=== PATIENT | male | born 1975 | race African-American/Black ===

== ENCOUNTER 2017-03-30 20:37 | Emergency (ER) | payer SELFPAY ==
[2017-03-30 21:53] LABS: BASO # 0.1 x10^3/uL (0.0-0.2); BASO % 1 % (0-3); EOS % 0 % (0-3); HEMATOCRIT 53.4 % (39.0-53.0); HEMOGLOBIN 17.5 g/dL (13.0-17.5); LYMPH # 2.5 x10^3/uL (1.0-4.8); LYMPH % 16 % (24-48); MEAN CORPUSCULAR HEMOGLOBIN 29 pg (25-35); MEAN CORPUSCULAR HGB CONC 33 g/dL (31-37); MEAN CORPUSCULAR VOLUME 90 fL (79-100); MONO % 5 % (0-9); NEUT % 79 % (31-73); PLATELET COUNT 236 x10^3/uL (140-400); RED BLOOD COUNT 5.95 x10^6/uL (4.30-5.70); WHITE BLOOD COUNT 16.1 x10^3/uL (4.0-11.0)
--- NOTE | 2017-03-30 21:58 | PHYS DOC ---
Past Medical History Past Medical History: No Pertinent History Past Surgical History: No Surgical History Additional Information: LESS THAN A PP WEEK Alcohol Use: None Drug Use: Marijuana Adult General Chief Complaint Chief Complaint: NAUSEA/VOMITING/DIARRHA HPI HPI Patient is a 42 year old for -[place] male who presents with epigastric pain. He states it started this morning and has been constant. He burps and passes gas and actually makes it better. He states when he burps he has much acid in his mouth. He states symptoms x-ray started Monday morning after he ate at [employer] for before. He states Monday he started having a lot of abdominal cramps that he eventually started vomiting and having diarrhea dose of all gone away and he's having normal/loose stools now without any vomiting. He states the pain is a 10 out 10 and when he burps he does feel better. He denies any flank pain, right or left upper quadrant pain, or any other pain other than the epigastric area. He taken Maalox and Pepto-Bismol for this. Review of Systems Review of Systems Constitutional: Denies fever or chills [] Eyes: Denies change in visual acuity, redness, or eye pain [] HENT: Denies nasal congestion or sore throat [] Respiratory: Denies cough or shortness of breath [] Cardiovascular: No additional information not addressed in HPI [] GI: Positive for abdominal pain, Denies nausea, vomiting, bloody stools or diarrhea [] : Denies dysuria or hematuria [] Musculoskeletal: Denies back pain or joint pain [] Integument: Denies rash or skin lesions [] Neurologic: Denies headache, focal weakness or sensory changes [] Endocrine: Denies polyuria or polydipsia [] All other systems were reviewed and found to be within normal limits, except as documented in this note. Current Medications Current Medications Current Medications Medications (Trade) Dose Ordered Sig/Royal Start Time Stop Time Status Last Admin Dose Admin Famotidine (Pepcid Vial) 20 mg 1X ONCE 03/31/17 00:15 03/31/17 00:16 DC 03/31/17 00:08 20 MG Multi-Ingredient Mouthwash/Gargle (Gi Cocktail Single Dose) 15 ml 1X ONCE 03/30/17 22:30 03/30/17 22:31 DC 03/30/17 22:20 15 ML Ondansetron HCl (Zofran) 4 mg 1X ONCE 03/30/17 23:00 03/30/17 23:01 DC 03/30/17 22:54 4 MG Sodium Chloride 1,000 ml @ 1,000 mls/hr 1X ONCE 03/30/17 23:45 03/31/17 00:44 DC 03/30/17 23:45 1,000 MLS/HR Allergies Allergies Allergies Coded Allergies Type Severity Reaction Last Updated Verified No Known Drug Allergies 03/30/17 No Physical Exam Physical Exam Constitutional: Well developed, well nourished, no acute distress, non-toxic appearance. [] HENT: Normocephalic, atraumatic, bilateral external ears normal, oropharynx moist, no oral exudates, nose normal. [] Eyes: PERRLA, EOMI, conjunctiva normal, no discharge. [] Neck: Normal range of motion, no tenderness, supple, no stridor. [] Cardiovascular:Heart rate regular rhythm, no murmur [] Lungs & Thorax: Bilateral breath sounds clear to auscultation [] Abdomen: Bowel sounds normal, soft, tender to palpation in the epigastric area, no rebound or guarding, no masses, no pulsatile masses. [] Skin: Warm, dry, no erythema, no rash. [] Back: No tenderness, no CVA tenderness. [] Extremities: No tenderness, no cyanosis, no clubbing, ROM intact, no edema. [] Neurologic: Alert and oriented X 3, normal motor function, normal sensory function, no focal deficits noted. [] Psychologic: Affect normal, judgement normal, mood normal. [] Current Patient Data Vital Signs Vital Signs Date Time Temp Pulse Resp B/P (MAP) Pulse Ox O2 Delivery O2 Flow Rate FiO2 03/30/17 21:28 97.7 69 12 176/100 (125) 98 Room Air 97.7 Lab Values Laboratory Tests Test 03/30/17 21:33 03/30/17 23:57 03/31/17 00:22 White Blood Count 16.1 x10^3/uL (4.0-11.0) H Red Blood Count 5.95 x10^6/uL (4.30-5.70) H Hemoglobin 17.5 g/dL (13.0-17.5) Hematocrit 53.4 % (39.0-53.0) H Mean Corpuscular Volume 90 fL (79-100) Mean Corpuscular Hemoglobin 29 pg (25-35) Mean Corpuscular Hemoglobin Concent 33 g/dL (31-37) Red Cell Distribution Width 13.0 % (11.5-14.5) Platelet Count 236 x10^3/uL (140-400) Neutrophils (%) (Auto) 79 % (31-73) H Lymphocytes (%) (Auto) 16 % (24-48) L Monocytes (%) (Auto) 5 % (0-9) Eosinophils (%) (Auto) 0 % (0-3) Basophils (%) (Auto) 1 % (0-3) Neutrophils # (Auto) 12.6 x10^3uL (1.8-7.7) H Lymphocytes # (Auto) 2.5 x10^3/uL (1.0-4.8) Monocytes # (Auto) 0.9 x10^3/uL (0.0-1.1) Eosinophils # (Auto) 0.0 x10^3/uL (0.0-0.7) Basophils # (Auto) 0.1 x10^3/uL (0.0-0.2) Segmented Neutrophils % 77 % (35-66) H Lymphocytes % 20 % (24-48) L Monocytes % 3 % (0-10) Platelet Estimate Adequate (ADEQUATE) Sodium Level 134 mmol/L (136-145) L Potassium Level 3.6 mmol/L (3.5-5.1) Chloride Level 95 mmol/L (98-107) L Carbon Dioxide Level 26 mmol/L (21-32) Anion Gap 13 (6-14) Blood Urea Nitrogen 11 mg/dL (8-26) Creatinine 1.2 mg/dL (0.7-1.3) Estimated GFR (Cockcroft-Gault) 79.6 Glucose Level 101 mg/dL (70-99) H Calcium Level 9.9 mg/dL (8.5-10.1) Magnesium Level 2.2 mg/dL (1.8-2.4) Total Bilirubin 1.1 mg/dL (0.2-1.0) H Direct Bilirubin 0.3 mg/dL (0.0-0.2) H Aspartate Amino Transferase (AST) 22 U/L (15-37) Alanine Aminotransferase (ALT) 23 U/L (16-63) Alkaline Phosphatase 95 U/L (46-116) Creatine Kinase 348 U/L (39-308) H 286 U/L (39-308) Creatine Kinase MB (Mass) 0.8 ng/mL (0.0-3.6) 1.0 ng/mL (0.0-3.6) Creatine Kinase MB Relative Index 0.2 % (0-4) 0.3 % (0-4) Troponin I Quantitative < 0.017 ng/mL (0.000-0.055) < 0.017 ng/mL (0.000-0.055) WN-Kir-L-Type Natriuretic Peptide 40 pg/mL (0-124) Total Protein 8.9 g/dL (6.4-8.2) H Albumin 4.1 g/dL (3.4-5.0) Lipase 62 U/L (73-393) L Urine Opiates Screen Neg (NEG) Urine Methadone Screen Neg (NEG) Urine Barbiturates Neg (NEG) Urine Phencyclidine Screen Neg (NEG) Urine Amphetamine/Methamphetamine Neg (NEG) Urine Benzodiazepines Screen Neg (NEG) Urine Cocaine Screen Neg (NEG) Urine Cannabinoids Screen Pos (NEG) Urine Ethyl Alcohol Neg (NEG) Laboratory Tests 03/30/17 21:33 Laboratory Tests 03/30/17 21:33 EKG EKG EKG shows sinus rhythm [address] elevations or T-wave inversions, normal axis, QTC 300 and then will sinus, as interpreted by me. Radiology/Procedures Radiology/Procedures One view chest x-ray did not show any focal consolidations, bony abnormality's, pneumothorax, acute abdominal series did not show any instructed gas patterns, foreign bodies, soft tissue abnormality's, as interpreted by me.[] Impressions: Nausea vomiting, diarrhea GERD Elevated blood pressure Course & Med Decision Making Course & Med Decision Making Pertinent Labs and Imaging studies reviewed. (See chart for details) Symptoms been going on constant all day today. His EKG, acute abdominal series, vitals and labs do not show any concerning symptoms. I did repeat his troponin which is also negative. His blood pressure slightly elevated therefore instructed to follow-up with his primary care physician. He felt better after he got a GI cocktail. He is being discharged with Pepcid. He did get 1 dose IV prior to leaving. He is also being discharged with Zofran. He is encouraged to follow-up with his primary care physician. Return precautions given his agreeable to the plan. Julius Disclaimer Aliyaon Disclaimer This electronic medical record was generated, in whole or in part, using a voice recognition dictation system. Departure Departure Impression: Primary Impression: GERD (gastroesophageal reflux disease) Disposition: HOME, SELF-CARE Condition: STABLE Referrals: NO PCP (PCP) Patient Instructions: Nausea and Vomiting, [id number] Additional Instructions: Your blood work, EKG, x-rays and vitals are all within normal limits. You were given a GI cocktail and your symptoms improved, therefore you were started you on Pepcid. Pepcid is an acid hilaria that should prevent the acid from coming up into your throat. You can buy this [id number] and follow instructions on the bottle. You'll need to follow-up with primary care physician within the next few days. Your blood pressure is slightly elevated; you'll need to follow- up with your primary care physician to make sure this returns back down to normal. You are also being discharged with Zofran, which is an oral dissolvable tablet for goes on your tongue to help prevent nausea and vomiting. Return back to ER if your pain gets worse, you vomit blood, you have troubles breathing, we have any other concerns. Scripts Ondansetron (ZOFRAN ODT) 4 Mg Tab.rapdis 1 TAB SL Q8HRS, #10 TAB Prov: JOHN MERCHANT MD 03/31/17 JOHN MERCHANT MD Mar 30, 2017 21:58
[2017-03-30] MEDS ORDERED: IV NORMAL SALINE 1000ML BAG 1,000 ML IV SCH (22:00)
[2017-03-30 22:02] LABS: CALCIUM 9.9 mg/dL (8.5-10.1); CREATININE 1.2 mg/dL (0.7-1.3); GFR 79.6; POTASSIUM 3.6 mmol/L (3.5-5.1)
[2017-03-30 22:08] LABS: ALBUMIN 4.1 g/dL (3.4-5.0); DIRECT BILIRUBIN 0.3 mg/dL (0.0-0.2); MAGNESIUM 2.2 mg/dL (1.8-2.4); TOTAL BILIRUBIN 1.1 mg/dL (0.2-1.0); TOTAL PROTEIN 8.9 g/dL (6.4-8.2)
[2017-03-30 22:16] LABS: CKMB MASS 0.8 ng/mL (0.0-3.6)
[2017-03-30 22:17] LABS: PLT ESTIMATE ADEQUATE (ADEQUATE)
[2017-03-30] MEDS ORDERED: LIDO:MAALOX:DONNATAL 1:1:1 15 ML SINGLE DOSE SWSW ONE (22:30)
[2017-03-30] MEDS ORDERED: ONDANSETRON PF 4 MG/2 ML VIAL. IV ONE (23:00)
[2017-03-30] MEDS ORDERED: IV NORMAL SALINE 1000ML BAG 1,000 ML IV ONE (23:45)
[2017-03-31 00:11] LABS: BARBITURATES NEG (NEG); BENZODIAZEPINES NEG (NEG); CANNABINOIDS POS (NEG); COCAINE NEG (NEG); METHADONE NEG (NEG); OPIATES NEG (NEG); PHENCYCLIDINE NEG (NEG)
[2017-03-31] MEDS ORDERED: FAMOTIDINE 20 MG/2 ML VIAL IVP ONE (00:15)
[2017-03-31] MEDS ORDERED: ONDA4TAB10 SL (01:12)
[2017-03-31 01:19] VITALS: BP 196/110
--- NOTE | 2017-03-31 06:20 | EKG ---
[facility] [address] [place] [id number] Test Date: 2017-03-30 Test Time: 22:23:21 Pat Name: SNATOS COX Department: Room: Gender: M Database Management Specialist: : [id number] Requested By: JOHN MERCHANT Order Number: [id number] Reading MD: Measurements Intervals [place] Rate: 70 P: 63 UT: 156 QRS: 32 QRSD: 86 T: 25 QT: 358 QTc: 389 Interpretive Statements SINUS RHYTHM NORMAL ECG No previous ECG available for comparison
--- NOTE | 2017-03-31 07:47 | RAD ---
Acute abdomen series with chest, 3 views, 03/30/2017: History: Epigastric pain Gas is present in large and small bowel in a nonspecific pattern. No free air seen in the abdomen. There is no evidence of organomegaly. There are radiopacities overlying the right renal region raising the possibility of renal calculi. Overlying bowel content or some other type of abdominal calcification cannot be excluded. The heart size is normal. The lungs are clear. There is no evidence of pleural fluid. Moderate spurring is present at the T12-L1 level. IMPRESSION: 1. Possible right renal calculi. 2. No acute abdominal abnormality is detected.
== END 2017-03-31 01:20 | disposition home or self-care (01) ==
LOC: ER 20:37
DX: K21.9 Gastro-esophageal reflux disease without esophagitis (principal); F17.200 Nicotine dependence, unspecified, uncomplicated; F12.10 Cannabis abuse, uncomplicated
CPT/HCPCS: 36415; 74022; 80048; 80076; 80307; 82553; 83690; 83735; 83880; 84484; 85007; 85025; 93005; 96361; 96374; 96375; 99285; J2405; J7030; S0028; G0479